=== PATIENT | female | born 1995 | race Caucasian/White ===

== ENCOUNTER 2018-11-10 12:29 | Emergency (ER) | payer MEDICAID ==
[~2018-11-10] VITALS: Ht 185.4 cm; Wt 77.9 kg
[~2018-11-10 12:29] MED LIST: PRENATAL
[2018-11-10 12:33] VITALS: TEMP 97.2
--- NOTE | 2018-11-10 15:18 | NUR ---
The patient's nurse, Roni, contacted RACHEL to inform that the patient has concerns about her Medicaid sheela and wants to know if there is anyway that it can be processed quicker. RACHEL then consulted financial counselor, Kaleb. Kaleb is to meet with the patient. No additional needs at this time.
[2018-11-10] MEDS ORDERED: CEPHALEXIN500 M1 PO (15:31)
[2018-11-10 15:37] VITALS: BP 97/63; PULSE 62
== END 2018-11-10 15:51 | disposition home or self-care (01) ==
LOC: COL.ER 12:29
DX: L02.412 Cutaneous abscess of left axilla (principal)

== ENCOUNTER → 2018-11-13 | Outpatient (CLI) | payer MEDICAID ==
[~2018-11-13] MED LIST changes: +CEPHALEXIN500 M1 PO
== END ==
LOC: ZCOL.LAB 17:38
DX: Z01.89 Encounter for other specified special examinations (principal)